=== PATIENT | female | born 1960 | race Caucasian/White ===

== ENCOUNTER 2017-03-23 14:07 | Emergency (ER) | payer SELFPAY ==
--- NOTE | 2017-03-23 14:33 | ER Document Report ---
ED General - General Stated Complaint: PYSCH EVAL Mode of Arrival: Medic Information source: Relative, Emergency Med Personnel Cannot obtain history due to: Altered mental status Notes: This is a 56-year-old female to the area who presents via EMS after a possible overdose. History is obtained from the family. Family states that patient called her in [place] sometime this morning and stated that this would be the last time he would talk to her. Family states they found her in the bathtub intoxicated and sleepy. There are some missing pills from her medication bottles include Ativan and Ambien, but it is unclear how many pills she actually took. She told them she had about a half a bottle of liquor to drink. It is uncertain what time this possible ingestion was but sometime within the last 4 hours. Family states she had a previous overdose attempt last year. - Related Data Allergies/Adverse Reactions: No Known Allergies Allergy (Verified 03/23/17 14:50) Past Medical History - General Information source: Relative - Social History Smoking Status: Unknown if Ever Smoked Family History: Reviewed & Not Pertinent Review of Systems - Review of Systems -: Yes ROS unobtainable due to patient's medical condition Physical Exam - Vital signs Vitals: Resp Pulse Ox 25 H 95 03/23/17 14:47 03/23/17 14:47 - Notes Notes: PHYSICAL EXAMINATION: GENERAL: well developed female, somewhat agitated, appears sleepy, moves all 4 extremities, she has a gag reflex and is protecting her airway at this time. + smell of ETOH HEAD: Atraumatic, normocephalic. EYES: Pupils equal round and reactive to light, sclera anicteric, conjunctiva are normal. ENT: nares patent, oropharynx clear without exudates. Moist mucous membranes. NECK: supple without lymphadenopathy LUNGS: Breath sounds clear to auscultation bilaterally and equal. No wheezes rales or rhonchi. HEART: Regular rate and rhythm without murmurs ABDOMEN: Soft, nontender, normoactive bowel sounds. No guarding, no rebound. EXTREMITIES: no obvious deformity or injury NEUROLOGICAL: moves all 4 extremities SKIN: Warm, Dry, normal turgor, no rashes or lesions noted. Course - Re-evaluation Re-evalutation: 03/23/17 19:15 Patient reevaluated multiple times. She remains alert, obviously intoxicated and somewhat agitated. She is maintaining her airway. She does follow commands. IVC paperwork has been completed and she will be observed overnight in the ER and evaluated by the mental health team in the morning. 03/23/17 22:48 Pt much more alert and conversant. She states that she only took a few Ativan and a few Ambien and that she wanted to sleep. However, given the fact that she called her to say goodbye, and that she has a history of suicide attempt by OD in the past, will continue to observe under IVC tonight and await mental health evaluation in the morning. - Vital Signs Vital signs: Temp Pulse Resp BP Pulse Ox 18 143/78 H 97 03/23/17 20:01 03/23/17 20:00 03/23/17 20:01 - Laboratory Result Diagrams: 03/23/17 14:20 03/23/17 14:20 Laboratory results interpreted by me: 03/23/17 03/23/17 03/23/17 14:20 14:20 17:45 RDW 14.4 H Sodium 146.8 H Chloride 111 H Alkaline Phosphatase 127 H Urine Blood MODERATE H Salicylates < 1.0 L Acetaminophen < 10 L Discharge - Discharge Clinical Impression: Acute alcohol intoxication Qualifiers: Complication of substance-induced condition: with unspecified complication Qualified Code(s): F10.129 - Alcohol abuse with intoxication, unspecified Suicide attempt by drug ingestion Qualifiers: Encounter type: initial encounter Qualified Code(s): T50.902A - Poisoning by unspecified drugs, medicaments and biological substances, intentional self-harm , initial encounter Condition: Stable Disposition: PSYCH HOSP/UNIT
[2017-03-23 14:42] LABS: ABSOLUTE BASOPHILS # (AUTO) 0.1 10^3/uL (0.0-0.2); ABSOLUTE EOSINOPHILS # (AUTO) 0.1 10^3/uL (0.0-0.6); ABSOLUTE LYMPHOCYTES (AUTO) 4.4 10^3/uL (0.5-4.7); ABSOLUTE MONOCYTES (AUTO) 0.9 10^3/uL (0.1-1.4); ABSOLUTE NEUT (AUTO) 4.4 10^3/uL (1.7-8.2); BASOPHILS % (AUTO) 0.9 % (0-2); EOSINOPHILS % (AUTO) 0.8 % (0-6); HEMATOCRIT 39.4 % (36.0-47.0); HEMOGLOBIN 13.2 g/dL (12.0-15.5); HGB HCT DIFFERENCE 0.2; LYMPHOCYTES % (AUTO) 44.9 % (13-45); MEAN CORPUSCULAR HEMOGLOBIN 30.6 pg (27.0-33.4); MEAN CORPUSCULAR HGB CONC 33.5 g/dL (32.0-36.0); MEAN CORPUSCULAR VOLUME 91 fl (80-97); MONOCYTES % (AUTO) 8.9 % (3-13); RED BLOOD COUNT 4.33 10^6/uL (3.72-5.28); RED CELL DISTRIBUTION WIDTH 14.4 % (11.5-14.0); SEGMENTED NEUTROPHILS % (AUTO) 44.5 % (42-78); WHITE BLOOD COUNT 9.8 10^3/uL (4.0-10.5)
[2017-03-23 15:04] LABS: ALANINE AMINOTRANSFERASE 37 U/L (9-52); ALBUMIN 4.1 g/dL (3.5-5.0); ALCOHOL 203 mg/dL (NONE DETECTED); ALKALINE PHOSPHATASE 127 U/L (38-126); ANION GAP 13 (5-19); ASPARTATE AMINO TRANSFERASE 30 U/L (14-36); BILIRUBIN,DIRECT 0.1 mg/dL (0.0-0.4); BILIRUBIN,TOTAL 0.3 mg/dL (0.2-1.3); BLOOD UREA NITROGEN 13 mg/dL (7-20); CALCIUM 9.3 mg/dL (8.4-10.2); CARBON DIOXIDE 23 mmol/L (22-30); CHLORIDE 111 mmol/L (98-107); CREATININE RESULT 0.55 mg/dL (0.52-1.25); GLUCOSE 96 mg/dL (75-110); SODIUM 146.8 mmol/L (137-145); TOTAL PROTEIN 6.5 g/dL (6.3-8.2)
[2017-03-23 18:25] LABS: APPEARANCE,URINE CLEAR; BILIRUBIN,URINE NEGATIVE (NEGATIVE); GLUCOSE, URINE NEGATIVE (NEGATIVE); KETONES,URINE NEGATIVE (NEGATIVE); LEUKOCYTE ESTERASE,URINE NEGATIVE (NEGATIVE); NITRITE,URINE NEGATIVE (NEGATIVE); PROTEIN,URINE NEGATIVE (NEGATIVE); URINE SPECIFIC GRAVITY 1.005; UROBILINOGEN,URINE NEGATIVE mg/dL (<2.0)
[2017-03-23 18:36] LABS: URINE BARBITURATES SCREEN NEGATIVE; URINE METHADONE SCREEN NEGATIVE; URINE OPIATES LOW NEGATIVE; URINE PHENCYCLIDINE SCREEN NEGATIVE
--- NOTE | 2017-03-23 19:35 | EKG REPORT ---
SEVERITY:- ABNORMAL ECG - SINUS RHYTHM RIGHT BUNDLE BRANCH BLOCK : Confirmed by: Jessie Porter 23-Mar-2017 19:34:43
[2017-03-23] MEDS ORDERED: NORMAL SALINE 1000 ML 1,000 ML IV ONE (22:02)
[2017-03-24] MEDS ORDERED: ACETAMINOPHEN 325 MG TABLET PO ONE ×2 (02:06→09:33)
--- NOTE | 2017-03-24 09:13 | ER Document Report ---
Doctor's Note Notes: 03/24/17 09:35 As the rounding physician for our psychiatric patients, I have reviewed the chart, vitals, lab work. Patient has been examined and noted to be stable admits to mild headache, she'll be given Tylenol . I am awaiting mental health in put.
[2017-03-24] MEDS ORDERED: NICOTINE 14 MG/24 HR PATCH.TD24 TD ONE (09:20)
--- NOTE | 2017-03-24 14:44 | PSYCHOLOGICAL NOTE ---
Psych Note - Psych Note Psych Note: This is a 56-year-old female to the area who presents via EMS after a possible overdose. History is obtained from the family. Family states that patient called her in [place] sometime this morning and stated that this would be the last time he would talk to her. Family states they found her in the bathtub intoxicated and sleepy. There are some missing pills from her medication bottles include Ativan and Ambien, but it is unclear how many pills she actually took. She told them she had about a half a bottle of liquor to drink. It is uncertain what time this possible ingestion was but sometime within the last 4 hours. Family states she had a previous overdose attempt last year. Patient states that she did not attempt suicide. She continue disclose that she took her Ambien and lorazepam to relax and go to sleep. She states this was not another way of saying suicide, she was just very upset and needed to calm down. She disclosed that she doesn't normally drink however she was drinking last night so does not remember contacting her spouse stating that she would not speak to him again. Patient disclosed that she did attempt suicide by overdose in August and that that was a true attempt. Patient disclosed that she does have social stressors of having no job however she loves [place]. She continued disclosed that she moved from [place] to [place] in January and drives back to [place] to her mental health provider. She states that she has been seeing this provider for approximately 10 years and has no interest in changing providers. She continued disclosed that under any circumstances she agreed to change her medication regiment. Patient states that she is diagnosed with anxiety depression and ADHD. Patient's daughter, Sherrell, disclosed the patient not having a job is the main problem. She continue disclose that the patient stays busy she is fine. She continue disclosed that she does like to spend money which is why she has to work. She states the patient was arguing with her son last night mostly over money. Patient's daughter states that the patient did attempt suicide by overdose in August however does not believe that this was an actual attempt. Patient is alert and orientated to person, place, time and circumstance. Mood is irritable with restricted affect. Patient adamantly denies suicidal and homicidal ideation. Patient denies auditory and visual hallucinations; patient is not demonstrating behaviour what would be congruent to responding to internal stimuli. No delusions are noted. Thought process is organized and linear. Eye contact was poor. Intellectual abilities appear to be within average range. Attention and concentration is fair. Insight, judgment, and impulse control is poor. 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 Patient denies suicidal and homicidal ideation. Patient does not meet IVC criteria per [place] 122C. Patient was psychoeducated on the number of addictive medications and she states she refuses to consider changing her medications. Patient drives to [place] to her provider for her mental health needs, she states that she has no interest in changing providers. Patient was provided local provider's list to assist with changing her provider if she changes her mind. Patient is recommended to follow up with her provider by March 27, 2017 to make an appointment. It is also recommended to review her medications with her provider to discuss possible alternative to the highly addictive medications her currently takes. Dr. Valladares was consulted on the care and management of this patient; attending physician is in agreement with recommendations and disposition.
[2017-03-24 17:21] VITALS: BP 134/56
== END 2017-03-24 15:30 | disposition home or self-care (01) ==
LOC: ER 14:07
DX: T50.902A Poisoning by unspecified drugs, medicaments and biological substances, intentional self-harm, initial encounter (principal); F10.129 Alcohol abuse with intoxication, unspecified; R45.1 Restlessness and agitation; R51 Headache
CPT/HCPCS: 36415; 71010; 80053; 80307; 81001; 85025; 93005; 93010; 99285

== ENCOUNTER 2018-04-19 19:54 | Emergency (ER) | payer SELFPAY ==
--- NOTE | 2018-04-19 20:20 | ER Document Report ---
ED General - General Chief Complaint: Pain All Over Stated Complaint: POSSIBLE OVERDOSE Time Seen by Provider: 04/19/18 20:05 Cannot obtain history due to: Uncooperative, Altered mental status Notes: Patient presents after apparently ingesting far too many of her alprazolam and zolpidem. The patient is minimally cooperative with history taking only answers yes or no to questions. Apparently she ingested 70-80 tablets of each of these medications over the past 9-10 days a month she states is a suicide attempt. She has a history of doing the same in the past. She is unable to clarify how much she took today. She will not answer what triggered her to do this. Apparently her family found out about this medication misuse, contacted EMS and she was transported to the emergency department. The patient has done something similar approximately 1 year ago in the past. Patient reports that she is still suicidal currently, does not want to live but will not elaborate further. She denies any acute medical complaints. - Related Data Allergies/Adverse Reactions: No Known Allergies Allergy (Verified 04/19/18 20:46) Past Medical History - General Information source: Patient, Emergency Med Personnel Cannot obtain history due to: Uncooperative, Altered mental status - Social History Smoking Status: Unknown if Ever Smoked Frequency of alcohol use: None Drug Abuse: Prescription drugs Lives with: Alone Family History: Reviewed & Not Pertinent Psychiatric Medical History: Reports: Hx Depression Review of Systems - Review of Systems Notes: Constitutional: Negative for fever. HENT: Negative for sore throat. Eyes: Negative for visual changes. Cardiovascular: Negative for chest pain. Respiratory: Negative for shortness of breath. Gastrointestinal: Negative for abdominal pain, vomiting or diarrhea. Genitourinary: Negative for dysuria. Musculoskeletal: Negative for back pain. Skin: Negative for rash. Neurological: Negative for headaches, weakness or numbness. 10 point ROS negative except as marked above and in HPI. Physical Exam - Vital signs Vitals: Resp Pulse Ox 20 95 04/19/18 20:02 04/19/18 20:02 Interpretation: Normal Notes: PHYSICAL EXAMINATION: GENERAL: Appears older than stated age, in no distress HEAD: Atraumatic, normocephalic. EYES: Pupils equal round and reactive to light, extraocular movements intact, sclera anicteric, conjunctiva are normal. ENT: nares patent, oropharynx clear without exudates. Moist mucous membranes. NECK: Normal range of motion, supple without lymphadenopathy LUNGS: Breath sounds clear to auscultation bilaterally and equal. No wheezes rales or rhonchi. HEART: Regular rate and rhythm without murmurs ABDOMEN: Soft, nontender, normoactive bowel sounds. No guarding, no rebound. No masses appreciated. EXTREMITIES: Normal range of motion, no pitting or edema. No cyanosis. NEUROLOGICAL: No focal neurological deficits. Moves all extremities spontaneously and on command. PSYCH: Minimally cooperative with history taking. Somewhat lethargic. Actively states she was suicidal. SKIN: Warm, Dry, normal turgor, no rashes or lesions noted. Course - Re-evaluation Re-evalutation: 04/19/18 20:27 Patient presents with complaints of having ingested zolpidem as well as alprazolam over the past 9 days. Does not seem to me that the patient has true suicidal intention as it would be inconsistent to be taking the medications or such a large space of time if she was truly trying to harm herself. Patient does not appear to be in any significant distress, vitals within normal limits at time of initial evaluation. Will obtain standard medical screening labs. Medical screening exam is unremarkable. She does not currently meet involuntary commitment criteria as it appears that her suicidality is more passive and active and that she is more likely abusing her medications than anything else. She will be held overnight to be evaluated by psychiatry in the morning. 04/19/18 23:33 Medical screening labs unremarkable. Patient remains seen in normal limits. She is medically cleared for evaluation and disposition per psychiatry in the morning. - Vital Signs Vital signs: Temp Pulse Resp BP Pulse Ox 23 H 120/51 L 97 04/19/18 23:01 04/19/18 23:01 04/19/18 23:01 - Laboratory Result Diagrams: 04/19/18 20:20 04/19/18 21:15 Laboratory results interpreted by me: 04/19/18 04/19/18 20:20 21:15 WBC 13.1 H Absolute Neutrophils 9.4 H Sodium 146.4 H Chloride 110 H AST 37 H Alkaline Phosphatase 163 H Salicylates < 1.0 L Acetaminophen < 10 L Discharge - Discharge Clinical Impression: Prescription drug abuse Polysubstance overdose Qualifiers: Encounter type: initial encounter Injury intent: intentional self-harm Qualified Code(s): T50.902A - Poisoning by unspecified drugs, medicaments and biological substances, intentional self-harm, initial encounter Condition: Stable Disposition: PSYCH HOSP/UNIT
[2018-04-19 20:35] LABS: ABSOLUTE BASOPHILS # (AUTO) 0.1 10^3/uL (0.0-0.2); ABSOLUTE EOSINOPHILS # (AUTO) 0.1 10^3/uL (0.0-0.6); ABSOLUTE LYMPHOCYTES (AUTO) 2.5 10^3/uL (0.5-4.7); ABSOLUTE NEUT (AUTO) 9.4 10^3/uL (1.7-8.2); EOSINOPHILS % (AUTO) 0.7 % (0-6); HEMATOCRIT 40.7 % (36.0-47.0); HEMOGLOBIN 13.5 g/dL (12.0-15.5); MEAN CORPUSCULAR HEMOGLOBIN 32.1 pg (27.0-33.4); MEAN CORPUSCULAR HGB CONC 33.2 g/dL (32.0-36.0); MEAN CORPUSCULAR VOLUME 97 fl (80-97); MONOCYTES % (AUTO) 7.9 % (3-13); PLATELET COUNT 310 10^3/uL (150-450); RED BLOOD COUNT 4.21 10^6/uL (3.72-5.28); RED CELL DISTRIBUTION WIDTH 13.2 % (11.5-14.0); SEGMENTED NEUTROPHILS % (AUTO) 71.4 % (42-78); TOTAL CELLS COUNTED % (AUTO) 100 %; WHITE BLOOD COUNT 13.1 10^3/uL (4.0-10.5)
[2018-04-19 20:55] LABS: APPEARANCE,URINE CLEAR; BILIRUBIN,URINE NEGATIVE (NEGATIVE); COLOR,URINE YELLOW; GLUCOSE, URINE NEGATIVE (NEGATIVE); KETONES,URINE NEGATIVE (NEGATIVE); LEUKOCYTE ESTERASE,URINE NEGATIVE (NEGATIVE); NITRITE,URINE NEGATIVE (NEGATIVE); PROTEIN,URINE NEGATIVE (NEGATIVE); URINE SPECIFIC GRAVITY 1.011; UROBILINOGEN,URINE NEGATIVE mg/dL (<2.0)
[2018-04-19 21:10] LABS: URINE AMPHETAMINES SCREEN NEGATIVE; URINE BARBITURATES SCREEN NEGATIVE; URINE BENZODIAZEPINES SCREEN UNCONFIRMED POSITIVE; URINE COCAINE SCREEN NEGATIVE; URINE MARIJUANA (THC) SCREEN NEGATIVE; URINE METHADONE SCREEN NEGATIVE; URINE PHENCYCLIDINE SCREEN NEGATIVE
[2018-04-19 21:37] LABS: ACETAMINOPHEN < 10 ug/mL (10-30); ALANINE AMINOTRANSFERASE 41 U/L (9-52); ALBUMIN 4.1 g/dL (3.5-5.0); ALCOHOL < 10 mg/dL (NONE DETECTED); ALKALINE PHOSPHATASE 163 U/L (38-126); ANION GAP 11 (5-19); ASPARTATE AMINO TRANSFERASE 37 U/L (14-36); BILIRUBIN,DIRECT 0.3 mg/dL (0.0-0.4); BILIRUBIN,TOTAL 0.4 mg/dL (0.2-1.3); BLOOD UREA NITROGEN 11 mg/dL (7-20); CALCIUM 9.9 mg/dL (8.4-10.2); CARBON DIOXIDE 25 mmol/L (22-30); CHLORIDE 110 mmol/L (98-107); CREATINE KINASE 80 U/L (30-135); GLUCOSE 104 mg/dL (75-110); SALICYLATE < 1.0 mg/dL (2.0-20.0); SODIUM 146.4 mmol/L (137-145); TOTAL PROTEIN 6.9 g/dL (6.3-8.2)
--- NOTE | 2018-04-20 07:06 | EKG REPORT ---
SEVERITY:- ABNORMAL ECG - SINUS RHYTHM MATTHEW, CONSIDER BIATRIAL ABNORMALITIES RBBB AND LAFB : Confirmed by: Gunner Adler MD 20-Apr-2018 07:04:58
--- NOTE | 2018-04-20 09:47 | ER Document Report ---
Doctor's Note Notes: 04/20/18 09:46 This is a follow-up evaluation: Primary diagnosis-suicidal ideation, drug overdose, psychosis Patient is here for the above reason, has been doing well, currently has --- complaint. On examination-vitals reviewed in the chart. General exam: Alert oriented 3 not in any acute distress HEENT: Normocephalic atraumatic pupils are equal reactive to light, Lungs-clear breath sounds no rales or wheezing. Cardiovascular system: Normal S1-S2 no murmurs. Gastrointestinal: Normal breath sounds, no organomegaly positive bowel sounds. Genitourinary: Skin: No lesions noted, no rash Psychiatric: Diagnoses:suicidal ideation, drug overdose, psychosis Plan: Continue on current plan, mental health is working on disposition.
[2018-04-20] MEDS ORDERED: NICOTINE 21 MG/24 HR PATCH.TD24 TD ONE (10:30)
--- NOTE | 2018-04-20 11:56 | PSYCHOLOGICAL NOTE ---
Psych Note - Psych Note Psych Note: Reason for consult: suicidal ideation This is a 56-year-old female to the area who presents via EMS after a possible overdose. Patient is extremely irritable and does not want to engage with clinician. Patient states that she has been under stress and been taking medication to stop the stress. Patient confirms she still goes to [place] to get her medications. Patient reiterates to clinician she has no interest in changing providers because she has been seeing her provider for many years Clinician spoke with patient's sister and daughter at bedside per patient's request. They disclosed the patient seems to be having cycles where she gets very depressed and then overdoses on her medication. They report that patient is misusing her medications however yesterday she was making suicidal comments and took approximately 60 pills within the last 24 hours. They voiced concern that the patient will attempt sucide again upon discharge. They are unwilling to be part of the discharge plan at this time because they want the patient to get treatment for substance abuse and depression. Clinician notes patient was very irritable and demanded to be part of the conversation. Clinician invited the patient to join conversation about the concern that the patient is misusing her medications. Patient states "if you don't let me out of here I will kill myself." Patient was able to calm down and disclosed that she would stay calmly as long as her family left. Patient's sister stated "you are going to kill yourself going this way;" in which the patient replied "it is because of you I hate you all... I want to ... I hate you." Patient daughter disclosed the patient's son is bipolar and is concerned the patient has been misdiagnosed and not on the correct medications;" there are times where she is doing really good and then there is times like this." Patient is alert and orientated to person, place, time and circumstance. Mood is irritable with restricted affect. Patient continues to make suicidal comments after suicidal gesture. Patient denies auditory and visual hallucinations; patient is not demonstrating behaviour what would be congruent to responding to internal stimuli. No delusions are noted. Thought process is organized and linear. Eye contact was poor. Intellectual abilities appear to be within average range. Attention and concentration is poor. Insight, judgment, and impulse control is poor. Medication recommendations per [facility]'s contracted psychiatrist, Dr. Myra MANZANO are as follows 1. Please discontinue home medications of Xanax, Ambien, Rexulti, and Vyvanse 2. Please decrease your home medication of Cymbalta to 60 mg daily 3. Please continue your home medication of clonidine 0.1 mg nightly 4. Please start taking Zyprexa 5 mg twice daily 5. Please start taking Cogentin 1 mg daily 6. 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 Patient took about 60 pills within the last 24 hours in an attempt of suicide. Patient verbally confirms she wants to . While patient may be miss using her medications; patient was seen about one year ago with simmilare concerns of intentional overdose. Patient's family disclosed the patient goes through cycles and had been doing well. Patient's diagnosis per history include anxiety, depression, and ADHD however this clinician believes the patient is actually been untreated bipolar disorder which would account for the cycling the patient's family witness. Patient is currently in a hypomanic state. Dr. Valladares was consulted on the care and management of this patient; attending physician is in agreement with recommendations and disposition.
[2018-04-20] MEDS ORDERED: NORMAL SALINE 1000 ML 1,000 ML IV PRN (12:47)
[2018-04-20] MEDS ORDERED: NORMAL SALINE 1000 ML 1,000 ML IV ONE (12:47)
[2018-04-20] MEDS ORDERED: CLONIDINE HCL 0.1 MG TABLET PO SCH (14:45)
[2018-04-20] MEDS ORDERED: DULOXETINE HCL 30 MG CAPSULE.DR PO SCH (14:45)
[2018-04-20] MEDS ORDERED: BUSPIRONE HCL 10 MG TABLET PO SCH (15:00)
[2018-04-20] MEDS ORDERED: BENZTROPINE MESYLATE 1 MG TABLET PO SCH (15:00)
[2018-04-20] MEDS ORDERED: OLANZAPINE 5 MG TABLET PO SCH (15:00)
[2018-04-20] MEDS ORDERED: BUSPIRONE HCL 10 MG TABLET PO ONE (15:30)
[2018-04-20] MEDS ORDERED: DULOXETINE HCL 30 MG CAPSULE.DR PO ONE (15:30)
[2018-04-20] MEDS ORDERED: OLANZAPINE 5 MG TABLET PO ONE (15:30)
--- NOTE | 2018-04-20 16:32 | EKG REPORT ---
SEVERITY:- ABNORMAL ECG - SUPRAVENTRICULAR TACHYCARDIA RBBB AND LAFB : Confirmed by: Gunner Adler MD 20-Apr-2018 16:32:00
[2018-04-20] MEDS: OLANZAPINE 5 MG TABLET PO SCH (18:06)
[2018-04-20] MEDS: BUSPIRONE HCL 10 MG TABLET PO SCH (21:14)
[2018-04-21] MEDS: OLANZAPINE 5 MG TABLET PO SCH ×2 (09:34→17:28)
[2018-04-21] MEDS: BUSPIRONE HCL 10 MG TABLET PO SCH (09:34)
[2018-04-21] MEDS: DULOXETINE HCL 30 MG CAPSULE.DR PO SCH (09:34)
--- NOTE | 2018-04-21 10:01 | ER Document Report ---
Doctor's Note Notes: 04/21/18 10:00 This is a follow-up evaluation: Primary diagnosis-substance abuse, suicidal Patient is here for the above reason, has been doing well, currently has -none- - complaint. On examination-vitals reviewed in the chart. General exam: Alert oriented 3 not in any acute distress HEENT: Normocephalic atraumatic pupils are equal reactive to light, Lungs-clear breath sounds no rales or wheezing. Cardiovascular system: Normal S1-S2 no murmurs. Gastrointestinal: Normal breath sounds, no organomegaly positive bowel sounds. Genitourinary: Skin: No lesions noted, no rash Psychiatric: Diagnoses: Substance abuse, suicidal Plan: Continue monitoring, mental health evaluation and decision.
--- NOTE | 2018-04-21 15:02 | PSYCHOLOGICAL NOTE ---
Psych Note - Psych Note Psych Note: Reason for consult: Re-evaluation, IVC, OD Contact permissions: Nathalia and Sherrell for collateral Patient is a 57 year old female who is in the ED for an intentional OD of multiple medications unknown amount. Today she was adamant she does not have suicidal ideation, she had just been upset and wanted to sleep. She stated I am doing good and I want to go home. She said what upset her was her son who has been addicted to heroin who recently just quit his job and left for [place]. She reported she did not take all the medication but rather hid some in her house, in her bedroom, in a show. Encouraged patient to allow family to know where she hid the medication so they can get it and confirm there is a bunch that had been hidden. She refused to allow family to know and commented I m not telling my family, my daughter doesnt like me taking the medications and she will throw it out. When confronted about a previous ED visit for similar crisis she stated the last time I had alcohol why would I drink when I could have taken my Ambien? Attending ED Physician said the only way he would rescind the IVC is if patient s family did in fact find a bunch of medications hidden. Patient made aware of this but still refused to inform family where she hid medications. Contacted Nathalia who is listed as daughter and emergency contact ([phone]). She stated Sherrell is patients daughter and she is the sister. She stated patient does not want help or to be committed. She noted again this is not the first time patient has done something like this (2 other instances, the August 2016 crisis resulted in patient aspirating and required her being on a ventilator). She stated the concern is that patient did this knowing her grandchildren were to be coming over. She stated she has a gleason to patients home and resides just down the road. She stated they found some pills on the floor (6 of one kind, 2 of another) but were unable to find any others. She reported the ones they found looked as though they had been dropped accidentally and unknowingly. She agreed to go look in patients bedroom in any shoes there may be (given patient is an IVC for an intentional OD with her story and family's story being very different it was felt that as a safety precaution family be made aware of patient's report she hid medication, helps to identify if patient really took all the medications and if patient ends up being discharged at some point she farah not need to have access to a bunch of medications she hid whether is is due to over use or trying to OD). She returned call later in the day and said she did not find any hidden pills. She identified she found empty pill bottles of heart medications and Cymbalta ( taken for arthritis). She said she went through purses, wallets, shoes, dresser drawers, make up bags, bowling bag, jewelry boxes and the bins patient has at the side of her dresser. 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 Patient noted a stress/trigger and being upset about son who quit job and went to [place] and is addicted to heroin. There is concern patient over uses her addictive (benzodiazepines, amphetamines) medications. Consulted with Dr. Valladares regarding the management and care of patient.
[2018-04-21] MEDS ORDERED: NICOTINE 21 MG/24 HR PATCH.TD24 TD ONE (18:24)
[2018-04-22] MEDS: BUSPIRONE HCL 10 MG TABLET PO SCH ×3 (01:15→22:07)
--- NOTE | 2018-04-22 09:45 | ER Document Report ---
Doctor's Note Notes: 04/22/18 09:45 This is a follow-up evaluation: Primary diagnosis-substance abuse, suicidal Patient is here for the above reason, has been doing well, currently has -none- - complaint. On examination-vitals reviewed in the chart. General exam: Alert oriented 3 not in any acute distress HEENT: Normocephalic atraumatic pupils are equal reactive to light, Lungs-clear breath sounds no rales or wheezing. Cardiovascular system: Normal S1-S2 no murmurs. Gastrointestinal: Normal breath sounds, no organomegaly positive bowel sounds. Genitourinary: Skin: No lesions noted, no rash Psychiatric: Diagnoses: Substance abuse, suicidal Plan: Waiting for the family members to remove all narcotics substance from her house to be discharged home
[2018-04-22] MEDS: OLANZAPINE 5 MG TABLET PO SCH ×2 (10:15→18:12)
[2018-04-22] MEDS: DULOXETINE HCL 30 MG CAPSULE.DR PO SCH (10:15)
[2018-04-22 10:20] VITALS: BP 135/55
--- NOTE | 2018-04-22 17:16 | PSYCHOLOGICAL NOTE ---
Psych Note - Psych Note Psych Note: Reason for consult: 2nd Re-evaluation, IVC, OD Contact permissions: Mildred for collateral Patient is a 57 year old female who is in the ED for an intentional OD of multiple medications unknown amount, her story is very different from her family 's story, she is inconsistent and has discrepancies regarding allowing her family to know where she reportedly hid a bunch of medications. She at first said she would tell her daughter exactly where she hid the medications but once on the phone she quickly changed her mind. Later in the day when confronted by this clinician and the attending ED Physician about telling family where exactly she hid medications she eventually said "I took them all ok." When asked about intention she remained consistent that she was not trying to kill herself but rather "sleep and not have to think about her son." She was still irritable but less than yesterday. Daughter asked that patient not be allowed to call her at work. She stated the family has ransacked patient's home looking everywhere and have not found any hidden medications. 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 Her story has been inconsistent from initial evaluation. She maintained she did not take all the medication to kill herself but rather to sleep and not have to think about her stress surrounding her son. Will seek placement and if unable to obtain any by tomorrow may plan for discharge given she will have been in ED with medications [address] Consult[address] with Dr. Valladares regarding the management and care of patient. ED Physician in agreement with recommendations.
[2018-04-22] MEDS ORDERED: NICOTINE 21 MG/24 HR PATCH.TD24 TD ONE (20:30)
[2018-04-23] MEDS: BUSPIRONE HCL 10 MG TABLET PO SCH (08:16)
--- NOTE | 2018-04-23 09:03 | PSYCHOLOGICAL NOTE ---
Psych Note - Psych Note Psych Note: Reason for consult: 3rd Re-evaluation, IVC, OD Contact permissions: Mildred for collateral Patient is a 57 year old female who is in the ED for an intentional OD of multiple medications unknown amount, her story is very different from her family 's story, she is inconsistent and has discrepancies regarding whether she hid medications or took them all (up until evening time yesterday when she did admit to taking all the medication). Today she had a brighter affect, better attitude and less irritability/mood lability. She reported "I fell better today. " She said "I owe you (referring to this clinician) an apology for lying." She admitted she lied about hiding the medications. She stated "I took more than I thought, I really don't recall much from and Sunday." She continued identify son being a trigger/stress. She stated "it got to me." She continued to deny over use of prescribed medications. She stated the new medications being administered in the ED "seem to be working." She identified her provider is Antonia at [facility] in [place], [place] and agreed to allow this clinician call to confirm the reported 07/11/18 medication appointment. Encouraged her to see a provider locally and she stated "I have been seeing Antonia for 9 years I do not want to switch." At discharge when going over medications she will be taking and ones she has been stopped she then commented she did not want to stop her ADHD medications of (Vyvanse and Adderall). When confronted she has not been getting the the past 3-4 days and has been fine she said "I have been in ED and not had to concentrate." Patient was alert and oriented to person, place, time and situation. Mood was more euthymic with congruent and brighter affect than previous days. She continued to deny SI/HI and continued to maintain she was not trying to kill herself but rather sleep and not think about her stress. She did not appear to be responding to internal stimuli as evidenced by fair eye contact, staying on topic and carrying on dialogue conversation. Thought processes were linear and organized. Conversational speech was within normal limits for rate, tone and prosody. Intellectual abilities are estimated to be average, Insight, judgment and impulse control are fair as evidenced by being less irritable, less mood lability and having been truthful about crisis incident since evening time yesterday. 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 Recommendation to rescind IVC. She finally admitted yesterday to taking all the medications. Today she apologized to this clinician for lying at first. She continued to maintain she was upset about her son, did take all the medications (said she didn't realize just how many she took) and was adamant (this has been the only thing to be consistent) that she was not trying to kill herself but rather "go to sleep and not think." She is actually being truthful and honest today. She has brighter affect than previous days. She has been in the ED since Sunday (04/19/18) night and been on scheduled psychiatric medications for the past 3 almost 4 days. Patient agreed to include Nathalia/sister in plan of care. Patient and sister agreed to allow family to have control over medications and administration via pill box the family will prepare. Patient and sister provided with list of medications patient will be taking at home (included new medications, continued medications and stopped medications). Instructed them to lock up or appropriately discard stopped medications. Instructed patient to take only the medications that had been administered in the ED (were high lighted in green on medication sheet provided) since they are what stabilized her (especially because she was saying she did not want to stop ADHD medications ). Also wrote down on medication sheet provided what the medications were meant to treat/address. Confirmed with outpatient medication provider (Meryl Whitfield) in [place], [place] at [facility] appointment patient said was scheduled for 07/11/18, provider stated was just seen earlier this month and did not have any other concerns. Attempted to call back for sooner medication appointment but was unable to get through. Patient and sister informed to have patient call first thing tomorrow morning. Patient and sister also provided with outpatient resource sheet which high lighted both [facility] numbers (provided psychoeducation on how [facility] works), as well as [facility] for individual therapy this clinician encouraged patient to do. Consulted with Dr. Valladares regarding the management and care of patient. ED Physician in agreement with recommendation.
[2018-04-23] MEDS: DULOXETINE HCL 30 MG CAPSULE.DR PO SCH (09:36)
[2018-04-23] MEDS: OLANZAPINE 5 MG TABLET PO SCH (09:36)
--- NOTE | 2018-04-23 09:54 | ER Document Report ---
Doctor's Note Notes: 04/23/18 09:51 Rounds: Patient interviewed and chart reviewed. Here for poly-substance abuse, in particular benzodiazepine. Has been here for 4 days. Says she is feeling better and wants to leave. Vital signs are all normal. Labs showed a white count of 13,100, but the patient has no signs or symptoms of any infections. Drug screen was positive for benzos, as would be expected. Sodium and chloride were just a slight bit high. Patient is up and ambulatory without any difficulty. Does not appear to be in any distress. Vital signs are all normal. Patient appears to be medically stable for transfer or discharge. I understand the plan is for the patient to be discharged. Rhina Renae MD
== END 2018-04-23 15:15 | disposition home or self-care (01) ==
LOC: ER 19:54
DX: M79.1 Myalgia (principal); T50.902A Poisoning by unspecified drugs, medicaments and biological substances, intentional self-harm, initial encounter; T42.4X2A Poisoning by benzodiazepines, intentional self-harm, initial encounter; T42.6X2A Poisoning by other antiepileptic and sedative-hypnotic drugs, intentional self-harm, initial encounter; X58.XXXA Exposure to other specified factors, initial encounter; F31.9 Bipolar disorder, unspecified; F13.99 Sedative, hypnotic or anxiolytic use, unspecified with unspecified sedative, hypnotic or anxiolytic-induced disorder; F15.99 Other stimulant use, unspecified with unspecified stimulant-induced disorder; F60.3 Borderline personality disorder
CPT/HCPCS: 93005 ×2; 99285; 96360; 96361; 36415; 80307 ×4; 82550; 85025; 80053; 81001; 93010 ×2; J7030

== ENCOUNTER 2018-12-18 19:18 | Emergency (ER) | payer BC ==
[2018-12-18] MEDS ORDERED: ADENOSINE INJ/PF 6 MG/2 ML SDV IV ONE (19:26)
[2018-12-18] MEDS ORDERED: ASPIRIN 81 MG TABLET, CHEWABLE PO ONE (19:42)
[2018-12-18] MEDS ORDERED: NORMAL SALINE 1000 ML 1,000 ML IV ONE ×2 (19:50→20:57)
[2018-12-18 19:56] LABS: ABSOLUTE BASOPHILS # (AUTO) 0.2 10^3/uL (0.0-0.2); ABSOLUTE EOSINOPHILS # (AUTO) 0.1 10^3/uL (0.0-0.6); ABSOLUTE LYMPHOCYTES (AUTO) 3.9 10^3/uL (0.5-4.7); ABSOLUTE MONOCYTES (AUTO) 1.4 10^3/uL (0.1-1.4); ABSOLUTE NEUT (AUTO) 8.7 10^3/uL (1.7-8.2); BASOPHILS % (AUTO) 1.2 % (0-2); EOSINOPHILS % (AUTO) 0.9 % (0-6); HEMATOCRIT 42.5 % (36.0-47.0); HEMOGLOBIN 14.1 g/dL (12.0-15.5); LYMPHOCYTES % (AUTO) 27.4 % (13-45); MEAN CORPUSCULAR HGB CONC 33.2 g/dL (32.0-36.0); MEAN CORPUSCULAR VOLUME 99 fl (80-97); MONOCYTES % (AUTO) 9.8 % (3-13); PLATELET COUNT 377 10^3/uL (150-450); RED BLOOD COUNT 4.28 10^6/uL (3.72-5.28); RED CELL DISTRIBUTION WIDTH 14.1 % (11.5-14.0); SEGMENTED NEUTROPHILS % (AUTO) 60.7 % (42-78); TOTAL CELLS COUNTED % (AUTO) 100 %; WHITE BLOOD COUNT 14.3 10^3/uL (4.0-10.5)
[2018-12-18 20:04] LABS: ALANINE AMINOTRANSFERASE 46 U/L (9-52); ALBUMIN 4.6 g/dL (3.5-5.0); ALKALINE PHOSPHATASE 169 U/L (38-126); ANION GAP 9 (5-19); ASPARTATE AMINO TRANSFERASE 40 U/L (14-36); BILIRUBIN,DIRECT 0.4 mg/dL (0.0-0.4); BILIRUBIN,TOTAL 0.6 mg/dL (0.2-1.3); BLOOD UREA NITROGEN 22 mg/dL (7-20); CALCIUM 9.9 mg/dL (8.4-10.2); CARBON DIOXIDE 22 mmol/L (22-30); CHLORIDE 110 mmol/L (98-107); CREATINE KINASE 53 U/L (30-135); GLUCOSE 190 mg/dL (75-110); SODIUM 140.8 mmol/L (137-145); TOTAL PROTEIN 7.2 g/dL (6.3-8.2)
--- NOTE | 2018-12-18 20:12 | ER Document Report ---
ED General - General Chief Complaint: Chest Pain Stated Complaint: CHEST PAIN Time Seen by Provider: 12/18/18 19:29 Primary Care Provider: CELIA PERRY MD [Primary Care Provider] - Follow up in 3-5 days ALFREDITO MARTINEZ MD [ACTIVE STAFF] - Follow up tomorrow Mode of Arrival: Ambulatory Information source: Patient, [facility] Records Notes: 58-year-old female with COPD presents with complaint of palpitations, chest pain that started just prior to arrival while the patient was at rest. Patient reports recent upper respiratory illness. She does admit to prior similar symptoms in March 2018 where she was found to be in SVT. She denies any current medication use. Patient has had associated chest pain and shortness of breath with these palpitations. Upon my arrival to into the room patient's nurses had already converted the patient with vagal maneuvers and her heart rate is now 110. Heart rate initially 168. Patient no longer has chest pain or shortness of breath. TRAVEL OUTSIDE OF THE [place] IN LAST 30 DAYS: No - HPI Onset: Just prior to arrival Onset/Duration: Sudden, Gone Quality of pain: Pressure Severity: Mild Associated symptoms: Chest pain, Nausea, Shortness of breath, Other - Palpitations Exacerbated by: Denies Relieved by: Denies Similar symptoms previously: Yes Recently seen / treated by doctor: No - Related Data Allergies/Adverse Reactions: No Known Allergies Allergy (Verified 04/19/18 20:46) Past Medical History - General Information source: Patient, [facility] Records - Social History Smoking Status: Current Every Day Smoker Cigarette use (# per day): Yes - 15 Smoking Education Provided: Yes - Smoking cessation counseling was provided for 4 minutes at the bedside Frequency of alcohol use: None Drug Abuse: None Lives with: Family Family History: Reviewed & Not Pertinent Patient has suicidal ideation: No Patient has homicidal ideation: No Pulmonary Medical History: Reports: Hx COPD Renal/ Medical History: Denies: Hx Peritoneal Dialysis Psychiatric Medical History: Reports: Hx Depression Review of Systems - Review of Systems Constitutional: Chills, Recent illness. denies: Diaphoresis EENT: Nose congestion Cardiovascular: Chest pain, Palpitations Respiratory: Cough, Short of breath Gastrointestinal: Nausea. denies: Vomiting Genitourinary: denies: Dysuria Female Genitourinary: No symptoms reported Musculoskeletal: denies: Back pain, Leg swelling Skin: denies: Rash Hematologic/Lymphatic: No symptoms reported Neurological/Psychological: Headaches. denies: Confusion, Weakness, Suicidal ideation -: Yes All other systems reviewed and negative Physical Exam - Vital signs Vitals: Resp Pulse Ox 24 H 99 12/18/18 19:29 12/18/18 19:29 - Notes Notes: PHYSICAL EXAMINATION: GENERAL: Moderate distress upon arrival HEAD: Atraumatic, normocephalic. EYES: Pupils equal round and reactive to light, extraocular movements intact, conjunctiva are normal. ENT: Nares patent, oropharynx clear without exudates. Moist mucous membranes. NECK: Normal range of motion, supple without lymphadenopathy LUNGS: Breath sounds clear to auscultation bilaterally and equal. No wheezes rales or rhonchi. HEART: Tachycardic, regular rhythm ABDOMEN: Soft, nontender, nondistended abdomen. No guarding, no rebound. No masses appreciated. Female : deferred Musculoskeletal: Normal range of motion, no pitting or edema. No cyanosis. NEUROLOGICAL: Cranial nerves grossly intact. Normal speech, normal gait. Normal sensory, motor exams PSYCH: Normal mood, normal affect. SKIN: Warm, Dry, normal turgor, no rashes or lesions noted. Course - Re-evaluation Re-evalutation: Laboratory 12/18/18 12/18/18 12/18/18 19:36 19:36 19:36 WBC 14.3 H RBC 4.28 Hgb 14.1 Hct 42.5 MCV 99 H MCH 33.0 MCHC 33.2 RDW 14.1 H Plt Count 377 Seg Neutrophils % 60.7 Lymphocytes % 27.4 Monocytes % 9.8 Eosinophils % 0.9 Basophils % 1.2 Absolute Neutrophils 8.7 H Absolute Lymphocytes 3.9 Absolute Monocytes 1.4 Absolute Eosinophils 0.1 Absolute Basophils 0.2 Sodium 140.8 Potassium 4.0 Chloride 110 H Carbon Dioxide 22 Anion Gap 9 BUN 22 H Creatinine 0.82 Est GFR ( Amer) > 60 Est GFR (Non-Af Amer) > 60 Glucose 190 H Calcium 9.9 Total Bilirubin 0.6 Direct Bilirubin 0.4 Neonat Total Bilirubin Not Reportable Neonat Direct Bilirubin Not Reportable Neonat Indirect Bili Not Reportable AST 40 H ALT 46 Alkaline Phosphatase 169 H Creatine Kinase 53 CK-MB (CK-2) 0.84 Troponin I < 0.012 Total Protein 7.2 Albumin 4.6 12/18/18 22:41 WBC RBC Hgb Hct MCV MCH MCHC RDW Plt Count Seg Neutrophils % Lymphocytes % Monocytes % Eosinophils % Basophils % Absolute Neutrophils Absolute Lymphocytes Absolute Monocytes Absolute Eosinophils Absolute Basophils Sodium Potassium Chloride Carbon Dioxide Anion Gap BUN Creatinine Est GFR ( Amer) Est GFR (Non-Af Amer) Glucose Calcium Total Bilirubin Direct Bilirubin Neonat Total Bilirubin Neonat Direct Bilirubin Neonat Indirect Bili AST ALT Alkaline Phosphatase Creatine Kinase CK-MB (CK-2) Troponin I 0.044 Total Protein Albumin Chest X-Ray 12/18/18 19:43 IMPRESSION: COPD. Lungs are clear copyright 2010 [employer]- All Rights Reserved Head CT 12/18/18 21:55 IMPRESSION: No acute intracranial hemorrhage. Temp Pulse Resp BP Pulse Ox 98.5 F 72 16 133/56 H 96 12/19/18 00:01 12/19/18 00:01 12/19/18 00:01 12/19/18 00:01 12/19/18 00:01 Nurse informed me that patient is requesting discharge home. I did speak to the patient and her family regarding staying until the evaluation was complete. 12/18/18 21:54 Patient presented with a heart rate of 170 that started 3 hours prior to a rrival. Vagal maneuvers were performed and patient converted immediately and repeat heart rate was 110. Patient did receive IV fluids and third EKG showed a heart rate of 89. Initial troponin is within normal limits. Patient was reevaluated and family is now at the bedside requesting a CAT scan of the head because of the patient's frequent headaches. 12/18/18 23:45 Spoke to patient regarding admission to the hospital. She states that she is ready to go home. She has remained chest pain-free since being converted within the first few minutes of her arrival. Patient's mildly elevated troponin likely demand ischemia from her heart rate of 170 for several hours. 12/18/18 23:47 Patient states that she will follow-up with Dr. Tariq her sister's classics professor. Family is at the bedside and will be staying with the patient. She was urged to return with any palpitations, chest pain or shortness of breath. Smoking cessation advised. Patient was evaluated and treated as appropriate for the patient's presenting symptoms and complaint, with consideration of any critical or life threatening conditions that may be associated with their obtained history and exam as noted above. All results were discussed with patient and patient's family who is at the bedside. Patient provided the opportunity to ask questions, and express concerns. Patient was educated on treatments based on their presumed diagnosis as noted above. At this time we will discharge the patient with return precautions and follow-up recommendations. Verbal discharge instructions given a the bedside. Medication warnings reviewed. Patient is in agreement with this plan and has verbalized understanding of return precautions. After careful consideration I feel that that patient can be safely discharged from the emergency department, they were advised to followup with a primary care physician in 2-3 days. Dictation on this chart was performed using voice recognition software and may result in unintended grammatical, spelling, syntax or errors. 12/19/18 03:48 - Vital Signs Vital signs: Temp Pulse Resp BP Pulse Ox 98.5 F 72 16 133/56 H 96 12/19/18 00:01 12/19/18 00:01 12/19/18 00:01 12/19/18 00:01 12/19/18 00:01 - Laboratory Result Diagrams: 12/18/18 19:36 12/18/18 19:36 Laboratory results interpreted by me: 12/18/18 12/18/18 19:36 19:36 WBC 14.3 H MCV 99 H RDW 14.1 H Absolute Neutrophils 8.7 H Chloride 110 H BUN 22 H Glucose 190 H AST 40 H Alkaline Phosphatase 169 H - Diagnostic Test Radiology reviewed: Image reviewed, Reports reviewed - EKG Interpretation by Me Rate: Tachycardia Rhythm: SVT When compared to previous EKG there are: No significant change, Other - Repeat EKG after vagal maneuvers show the patient to be in normal sinus rhythm at a rate of 81. Critical Care Note - Critical Care Note Total time excluding time spent on procedures (mins): 45 - Minutes of critical care time spent in direct contact evaluating and reevaluating the patient, treating symptoms, reviewing labs and studies and speaking with family and consultants excluding any procedures Discharge - Discharge Clinical Impression: SVT (supraventricular tachycardia), Dehydration Chest pain Qualifiers: Chest pain type: unspecified Qualified Code(s): R07.9 - Chest pain, unspecified Headache Qualifiers: Headache type: unspecified Headache chronicity pattern: unspecified pattern Intractability: not intractable Qualified Code(s): R51 - Headache COPD (chronic obstructive pulmonary disease) Qualifiers: COPD type: unspecified COPD Qualified Code(s): J44.9 - Chronic obstructive pulmonary disease, unspecified Condition: Good Disposition: HOME, SELF-CARE Instructions: Chest Pain of Unclear Cause ([facility]), Dehydration ([facility]), Headache ([facility]), Paroxysmal Supraventricular Tachycardia ([facility]) Forms: Smoking Cessation Education Referrals: CELIA PERRY MD [Primary Care Provider] - Follow up in 3-5 days ALFREDITO MARTINEZ MD [ACTIVE STAFF] - Follow up tomorrow
[2018-12-18] MEDS ORDERED: ONDANSETRON HCL INJ/PF 4 MG/2 ML SDV IV ONE (20:14)
[2018-12-18 20:15] LABS: CREATINE KINASE MB 0.84 ng/mL (<4.55)
--- NOTE | 2018-12-18 20:17 | RADIOLOGY REPORT (SQ) ---
EXAM DESCRIPTION: XR CHEST 2 VIEWS COMPLETED DATE/TME: 12/18/2018 19:43 CLINICAL HISTORY: 58 years, Female, palpitations/sob COMPARISON: 03/23/2017 chest NUMBER OF VIEWS: 2 TECHNIQUE: Frontal and lateral views of the chest LIMITATIONS: None. FINDINGS: Heart size is normal. Osteopenia. COPD. Lungs are clear. No pneumothorax IMPRESSION: COPD. Lungs are clear copyright 2011 [employer]- All Rights Reserved
[2018-12-18 20:19] LABS: TROPONIN I < 0.012 ng/mL
[2018-12-18] MEDS ORDERED: DIPHENHYDRAMINE HCL 50 MG/ML VIAL IV ONE (21:46)
[2018-12-18] MEDS ORDERED: METOCLOPRAMIDE HCL INJ/PF 10 MG/2 ML SDV IV ONE (21:46)
--- NOTE | 2018-12-18 22:29 | RADIOLOGY REPORT (SQ) ---
EXAM DESCRIPTION: CT HEAD WITHOUT IV CONTRAST COMPLETED DATE/TME: 12/18/2018 21:55 CLINICAL HISTORY: 58 years, Female, headache This exam was performed according to our departmental dose-optimization program which includes automated exposure control, adjustment of the mA and/or kVp according to patient size and/or use of iterative reconstruction technique where applicable. FINDINGS: No acute intracranial hemorrhage, mass effect or midline shift. No extra-axial fluid collections. Ventricles and subarachnoid spaces are preserved. Mild patchy hypodense areas in periventricular white matter of both cerebral hemispheres consistent with chronic small vessel ischemic changes. Visualized paranasal sinuses and the mastoid air cells are clear. The skull is intact. IMPRESSION: No acute intracranial hemorrhage.
[2018-12-19 00:01] VITALS: BP 133/56
--- NOTE | 2018-12-19 07:59 | EKG REPORT ---
SEVERITY:- ABNORMAL ECG - SINUS RHYTHM PROBABLE LEFT ATRIAL ABNORMALITY RBBB AND LAFB : Confirmed by: Rabia Davis MD 19-Dec-2018 07:58:19
--- NOTE | 2018-12-19 07:59 | EKG REPORT ---
SEVERITY:- ABNORMAL ECG - SINUS TACHYCARDIA MATTHEW, CONSIDER BIATRIAL ABNORMALITIES RBBB AND LAFB LEFT VENTRICULAR HYPERTROPHY : Confirmed by: Rabia Davis MD 19-Dec-2018 07:58:25
--- NOTE | 2018-12-19 07:59 | EKG REPORT ---
SEVERITY:- ABNORMAL ECG - SUPRAVENTRICULAR TACHYCARDIA INCOMPLETE RBBB AND LAFB ST DEPRESSION, PROBABLY RATE RELATED : Confirmed by: Rabia Davis MD 19-Dec-2018 07:58:39
== END 2018-12-19 00:01 | disposition home or self-care (01) ==
LOC: ER 19:18
DX: I47.1 Supraventricular tachycardia (principal); J44.9 Chronic obstructive pulmonary disease, unspecified; E86.0 Dehydration; R51 Headache; R07.89 Other chest pain; R74.8 Abnormal levels of other serum enzymes; R06.02 Shortness of breath; R11.0 Nausea; R68.83 Chills (without fever); R09.81 Nasal congestion; R05 Cough; F17.210 Nicotine dependence, cigarettes, uncomplicated; Z71.6 Tobacco abuse counseling
CPT/HCPCS: 93005; 99406; 99291; 96361; 96374; 96375; 36415; 82553; 82550; 85025; 80053; 84484; 71046; 70450; 93010; J1200; J2765; J2405; J7030

== ENCOUNTER 2020-05-04 19:01 | Emergency (ER) | payer SELFPAY ==
[2020-05-04 19:17] VITALS: BP 151/56
--- NOTE | 2020-05-04 19:58 | ER Document Report ---
ED Medical Screen (RME) - General Chief Complaint: Chest Pain > 30 Stated Complaint: CHEST PAIN Time Seen by Provider: 05/04/20 19:51 Primary Care Provider: CELIA PERRY MD [Primary Care Provider] - Follow up as needed Mode of Arrival: Ambulatory Information source: Patient Notes: 59-year-old female presented to ED for complaint of chest pain through to her back between her shoulder blades down the left shoulder down fci down her left arm. She states she was having the pain for a long time she ended up taking a total of 8 aspirin and 4 nitros but now she is not having any pain. She does have a past medical history of cholesterol COPD migraines and smokes a pack a day. She states her mother her father her grandparents and brothers and sisters have from heart attacks. She is hesitant to stay at this time because of no longer having chest pain. I have strongly encouraged her to stay and be completely evaluated. I have greeted and performed a rapid initial assessment of this patient. A comprehensive ED assessment and evaluation of the patient, analysis of test results and completion of medical decision making process will be conducted by an additional ED providers. TRAVEL OUTSIDE OF THE [place] IN LAST 30 DAYS: No - Related Data Allergies/Adverse Reactions: No Known Allergies Allergy (Verified 05/04/20 19:51) Past Medical History Pulmonary Medical History: Reports: Hx COPD Renal/ Medical History: Denies: Hx Peritoneal Dialysis Psychiatric Medical History: Reports: Hx Depression Physical Exam - Vital signs Vitals: Temp Pulse Resp BP Pulse Ox 99.2 F 70 16 151/56 H 97 05/04/20 19:14 05/04/20 19:14 05/04/20 19:14 05/04/20 19:14 05/04/20 19:14 Course - Vital Signs Vital signs: Temp Pulse Resp BP Pulse Ox 99.2 F 70 16 151/56 H 97 05/04/20 19:14 05/04/20 19:14 05/04/20 19:14 05/04/20 19:14 05/04/20 19:14 Doctor's Discharge - Discharge Referrals: CELIA PERRY MD [Primary Care Provider] - Follow up as needed
--- NOTE | 2020-05-04 20:29 | EKG REPORT ---
SEVERITY:- ABNORMAL ECG - SINUS RHYTHM PROBABLE LEFT ATRIAL ABNORMALITY RBBB AND LAFB LEFT VENTRICULAR HYPERTROPHY : Confirmed by: Rabia Davsi MD 04-May-2020 20:28:39
--- NOTE | 2020-05-04 21:04 | RADIOLOGY REPORT (SQ) ---
XR CHEST 2 VIEWS CLINICAL STATEMENT: Chest pain radiating to the back and left arm COMPARISON: 12/18/2018 FINDINGS: Cardiomediastinal silhouette is within normal limits. There is no focal lung consolidation or pleural effusion. No evidence of pulmonary edema or pneumothorax. IMPRESSION: No acute cardiopulmonary disease.
[2020-05-04 21:08] LABS: ABSOLUTE BASOPHILS # (AUTO) 0.1 10^3/uL (0.0-0.2); ABSOLUTE EOSINOPHILS # (AUTO) 0.2 10^3/uL (0.0-0.6); ABSOLUTE LYMPHOCYTES (AUTO) 3.5 10^3/uL (0.5-4.7); ABSOLUTE MONOCYTES (AUTO) 0.8 10^3/uL (0.1-1.4); ABSOLUTE NEUT (AUTO) 9.3 10^3/uL (1.7-8.2); EOSINOPHILS % (AUTO) 1.1 % (0-6); HEMATOCRIT 41.5 % (36.0-47.0); HEMOGLOBIN 13.7 g/dL (12.0-15.5); LYMPHOCYTES % (AUTO) 25.2 % (13-45); MEAN CORPUSCULAR HEMOGLOBIN 33.1 pg (27.0-33.4); MEAN CORPUSCULAR HGB CONC 32.9 g/dL (32.0-36.0); MEAN CORPUSCULAR VOLUME 101 fl (80-97); MONOCYTES % (AUTO) 5.5 % (3-13); PLATELET COUNT 313 10^3/uL (150-450); RED BLOOD COUNT 4.13 10^6/uL (3.72-5.28); RED CELL DISTRIBUTION WIDTH 13.2 % (11.5-14.0); SEGMENTED NEUTROPHILS % (AUTO) 67.2 % (42-78); TOTAL CELLS COUNTED % (AUTO) 100 %; WHITE BLOOD COUNT 13.8 10^3/uL (4.0-10.5)
[2020-05-04 21:14] LABS: INTERNATIONAL RATION (INR) 0.94; PROTHROMBIN TIME 12.6 SEC (11.4-15.4)
[2020-05-04 21:15] LABS: PARTIAL THROMBOPLASTIN TIME 27.1 SEC (23.5-35.8)
[2020-05-04 21:26] LABS: ALBUMIN 4.6 g/dL (3.5-5.0); ALKALINE PHOSPHATASE 124 U/L (38-126); ANION GAP 7 (5-19); ASPARTATE AMINO TRANSFERASE 41 U/L (14-36); BILIRUBIN,TOTAL 0.4 mg/dL (0.2-1.3); BLOOD UREA NITROGEN 18 mg/dL (7-20); CALCIUM 9.5 mg/dL (8.4-10.2); CARBON DIOXIDE 21 mmol/L (22-30); CHLORIDE 110 mmol/L (98-107); GLUCOSE 113 mg/dL (75-110); POTASSIUM 4.1 mmol/L (3.6-5.0); TOTAL PROTEIN 7.3 g/dL (6.3-8.2)
[2020-05-04 21:39] LABS: TROPONIN I 0.03 ng/mL
== END 2020-05-05 01:14 | disposition left against medical advice (07) ==
LOC: ER 19:01
DX: R07.9 Chest pain, unspecified (principal); M54.9 Dorsalgia, unspecified; M25.512 Pain in left shoulder; M79.602 Pain in left arm; J44.9 Chronic obstructive pulmonary disease, unspecified; F17.200 Nicotine dependence, unspecified, uncomplicated; Z82.49 Family history of ischemic heart disease and other diseases of the circulatory system; Z53.20 Procedure and treatment not carried out because of patient's decision for unspecified reasons
CPT/HCPCS: 36415; 71046; 80053; 83735; 83880; 84443; 84484; 85025; 85610; 85730; 93005; 93010; 99281